=== PATIENT | female | born 1945 | race Caucasian/White ===

== ENCOUNTER 2016-07-22 12:35 | Emergency (ER) | payer OTHER, MEDICARE ==
[~2016-07-22] VITALS: Ht 160 cm; Wt 68.0 kg
[2016-07-22 12:36] VITALS: BP 190/70; PULSE 55; RESP 16; TEMP 97.8; O2SAT 100
--- NOTE | 2016-07-22 12:36 | NUR ---
Placed in room 6 . Placed on electronic device monitor, blood pressure machine and pulse oximeter. To gown for exam. Side rails up. Report given to Christina LYN.
--- NOTE | 2016-07-22 12:45 | NUR ---
ER physician notified. In full C-spine precautions with hard C-collar and backboard in place.
--- NOTE | 2016-07-22 12:46 | NUR ---
Pt refused urinary catheter at this time, aware.
--- NOTE | 2016-07-22 12:46 | NUR ---
Dr Perera at bedside examining patient
--- NOTE | 2016-07-22 12:46 | NUR ---
Pt brought by ambulance, A&O X4, pt had syncopal episode while eating lunch, normal VS per EMS BS 136, hematoma noted on posterior head, pt denies pain at this time, skin pink and warm, cap refill <3, pt follows commands, C-spine and C-collar removed by Dr Perera.
[2016-07-22 13:11] LABS: BASOPHILS # (AUTO) 0.1 K/uL (0.0-0.2); BASOPHILS % (AUTO) 1.2 % (0.0-2.0); EOSINOPHILS # (AUTO) 0.3 K/uL (0.0-0.4); EOSINOPHILS % (AUTO) 3.6 % (0.0-4.0); HEMOGLOBIN 11.1 g/dL (12.0-16.0); LYMPHOCYTES # (AUTO) 1.2 K/uL (1.0-5.5); LYMPHOCYTES % (AUTO) 16.7 % (20.5-51.5); MEAN CORPUSCULAR HEMOGLOBIN 31 pg (27-31); MEAN CORPUSCULAR HGB CONC 34 % (32-36); MEAN CORPUSCULAR VOLUME 92 fL (79.0-98.0); MONOCYTES # (AUTO) 0.6 K/uL (0.0-1.0); MONOCYTES % (AUTO) 8.5 % (1.7-9.3); NEUTROPHILS # (AUTO) 4.9 K/uL (1.8-7.7); PLATELET COUNT (AUTO) 138 K/uL (130-430); RED BLOOD CELL COUNT(AUTO) 3.59 MIL/uL (4.2-6.2); RED CELL DISTRIBUTION WIDTH 14.4 % (9.0-15.0); WHITE BLOOD COUNT (AUTO) 7.1 K/uL (4.8-10.8)
[2016-07-22 13:12] LABS: ANION GAP 8 (5-15); CALCIUM 8.7 mg/dL (8.4-11.0); CHLORIDE 97 mmol/L (98-107); GLUCOSE 158 mg/dL (70-99); POTASSIUM 5.2 mmol/L (3.5-5.1); SODIUM SERUM 135 mmol/L (136-145); UREA NITROGEN, BLOOD 66 mg/dL (8-21)
[2016-07-22 13:13] LABS: INR 1.1 (0.8-1.2); PROTHROMBIN TIME 11.7 SECS (9.5-12.5)
[2016-07-22 13:14] LABS: GFR AFRICAN AMERICAN 4 mL/min (>90)
[2016-07-22 13:16] LABS: CREATININE 11.67 mg/dL (0.55-1.30)
[2016-07-22 13:32] LABS: ALANINE AMINOTRANSFERASE 18 U/L (12-78); ALBUMIN 2.7 g/dL (3.4-4.8); ALCOHOL, BLOOD < 3 mg/dL (<10); ASPARTATE AMINOTRANSFERASE 18 U/L (10-37); FREE T4 (FREE THYROXINE) 0.6 ng/dL (0.6-1.6); TOTAL BILIRUBIN 0.4 mg/dL (0.0-1.0); TOTAL PROTEIN, SERUM 6.3 g/dL (6.4-8.3)
[2016-07-22] MEDS ORDERED: SODIUM POLYSTYRENE SULFONATE 15 GM/60 ML UDBTL PO ONE (14:45)
--- NOTE | 2016-07-22 15:15 | NUR ---
Pt took only 30 GM of kayaxelate ,refused remaining 30 GM, states she does not want her potassium to be low, MD Dr Perera aware.
--- NOTE | 2016-07-22 15:30 | NUR ---
Patient given written and verbal discharge instructions and verbalizes understanding. ER MD discussed with patient the results and treatment provided. Patient in stable condition. ID arm band removed. IV catheter removed intact and dressing applied, no active bleeding. . Patient educated on pain management and to follow up with PMD. Pain Scale 0/10. Opportunity for questions provided and answered.
[2016-07-22 15:31] VITALS: BP 172/73; PULSE 57; RESP 18; TEMP 97.8; O2SAT 100
== END 2016-07-22 15:31 | disposition home or self-care (01) ==
LOC: SED 12:35
DX: R55 Syncope and collapse (principal); S00.03XA Contusion of scalp, initial encounter; I12.0 Hypertensive chronic kidney disease with stage 5 chronic kidney disease or end stage renal disease; N18.6 End stage renal disease; E11.9 Type 2 diabetes mellitus without complications; E78.00 Pure hypercholesterolemia, unspecified; W19.XXXA Unspecified fall, initial encounter; Y93.9 Activity, unspecified; Y92.89 Other specified places as the place of occurrence of the external cause; Y99.8 Other external cause status
CPT/HCPCS: 36415; 70450; 71010; 74000; 80053; 82140; 83605; 83880; 84439; 84484; 85025; 85610; 87040; 93005; 99285; G0482